=== PATIENT | female | born 1975 | race Caucasian/White ===

== ENCOUNTER 2016-04-27 11:34 | Emergency (ER) | payer OTHER, SELFPAY ==
[~2016-04-27 11:34] MED LIST: ANUSOL-HC25 MG/SUPP RC; ARMOUR THYROID15 M1 PO; FERRALET 90 TAB1 TAB PO; HCG; HUMULIN N100 UNIT/2 SC; KEFLEX750 MG; NO HOME MEDICATION XX; PERCOCET 5/3251 TAB PO; POTASSIUM CHLO20 ME3 PO; PRENATAL1 EACH PO; PROGESTERONE; PROMETRIUM200 MG; SYNTHROID25 MC1 PO; VISTARIL50 MG PO; [UNRECOGNIZED DRUG - OTHER]
[2016-04-27] MEDS ORDERED: LANTUS100 UNITS/ PO (11:55)
[2016-04-27] MEDS ORDERED: NOVOLOG100 UNITS/ SC (11:56)
[2016-04-27 12:19] LABS: BASO % 0.9 % (0-2); BASO ABSOLUTE COUNT 0.1 tho/cmm (0.0-0.2); EOS % 6.8 % (0-7); EOSINOPHIL ABSOLUTE COUNT 0.4 tho/cmm (0.0-0.7); HCT-HEMATOCRIT 36.3 % (34.0-49.0); HGB-HEMOGLOBIN 11.1 gm/dl (12.0-15.5); LYMPH % 35.5 % (20-45); LYMPH ABSOLUTE COUNT 1.9 tho/cmm (0.8-4.5); MCH (MEAN CORPUSCULAR HGB) 21.4 pg (28.0-32.0); MCHC MEAN CORPUSCULAR HGB CONC 30.6 % (32.0-36.0); MCV (MEAN CELL VOLUME) 69.9 fl (82.0-96.0); MEAN PLATELET VOLUME 8.9 cmc (9.4-12.4); MONO % 7.5 % (0-12); MONOCYTE ABSOLUTE COUNT 0.4 tho/cmm (0.0-1.2); NEUTROPHIL ABSOLUTE COUNT 2.6 tho/cmm (1.6-8.0); NEUTROPHIL-AUTOMATED 2.6 tho/cmm (1.6-8.0); NEUTROPHILS % 49.3 % (40-80); PLATELET COUNT 258 tho/cmm (150-450); RED BLOOD COUNT 5.19 mil/cmm (4.00-5.20); RED CELL DISTRIBUTION WIDTH 16.3 % (12.4-16.4); WHITE BLOOD COUNT 5.3 tho/cmm (4.0-10.0)
[2016-04-27 12:54] LABS: ALB/GLOB RATIO 1.1 (0.8-2.0); ALBUMIN 3.7 g/dl (3.5-5.0); ALKALINE PHOSPHATASE 77 U/L (33-138); ALT/SGPT 15 U/L (12-78); ANION GAP 10 mmol/L (0-20); AST/SGOT 16 U/L (10-40); BILIRUBIN,TOTAL 0.4 mg/dl (0-1.5); BLOOD UREA NITROGEN 11 mg/dl (6-24); CALCIUM 8.7 mg/dl (8.5-10.5); CARBON DIOXIDE-VENOUS 28 mmol/L (22-32); CHLORIDE 108 mmol/l (96-110); CREATININE 0.73 mg/dl (0.50-1.10); GLUCOSE 88 mg/dL (70-110); POTASSIUM 4.1 mmol/L (3.7-5.1); SODIUM 142 mmol/L (135-145); eGFR VALUE FOR BLACK >90 mL/Min
[2016-04-27 12:59] LABS: TSH-THYROID STIMULATING HORM. 2.94 uIU/ml (0.40-3.80)
== END 2016-04-27 14:00 ==
LOC: EDMED 11:34
PROVIDERS: Emergency Medicine
DX: R25.8 Other abnormal involuntary movements (principal); B34.9 Viral infection, unspecified; E11.9 Type 2 diabetes mellitus without complications; Z90.89 Acquired absence of other organs; Z98.890 Other specified postprocedural states
CPT/HCPCS: J1200; J2765; J7030